=== PATIENT | female | born 1930 | race Caucasian/White ===

== ENCOUNTER 2016-10-20 08:07 | Observation (INO) | payer MEDICARE, BC ==
[~2016-10-20 08:07] MED LIST: ADVAIR 100-501 EACH IH; ADVAIR 100-501 EACH INH; ADVAIR 1001 DISK W/D; ADVAIR 10028 BLISTER INH; ADVIL200 M3 PO; ALLERGY PILL PO; AMITRIPTYLINE H25 MG; ARIMIDEX1 MG PO; BROVANA15 MCG/22 IH; CALCIUM 600-VI1 EACH PO; CALCIUM W VIT D; CALTRATE 600 W1 EACH PO; CENTRUM SILVER1 EAC3 PO; CENTRUM SILVER1 TA PO; COMBIVENT INH14.7 GM; COMBIVENT RESPIM4 G1 INH; COMBIVENT1 PUFF INH; CYCLOBENZAPRINE5 M1 PO; DETROL LA4 M1 PO; DETROL LA4 MG; DETROL LA4 MG PO; DEXTROMETHORPHAN PO; GABAPENTIN300 M1 PO; GABAPENTIN400 M3 PO; GUAIFENESIN PO; HYDROCODON-ACE1 EA15 PO; HYDROCODONE/APA1 TA; IPRAT-ALBUT 0.5-3 ML IH; KLOR-CON M2020 MEQ PO; LASIX20 MG PO; LEVAQUIN750 M1 PO; LEVOTHYROXINE100 MC1 PO; LEVOTHYROXINE112 MC3 PO; LEVOXYL125 MCG PO; LISINOPRIL20 MG; LORTAB 10-3251 EAC1 PO; LORTAB 10/5001 EA PO; METAMUCIL FIB1 WAFER; METAMUCIL0.52 G1 PO; METAMUCIL1 PKT PO; MIRALAX17 G2 PO; MS CONTIN15 M1 PO; MUCINEX PO; MUCINEX1200 MG PO; MULTIVITAMIN1 TAB; NEURONTIN300 M1 PO; NEURONTIN300 MG PO; OPANA PO; POTASSIUM CHLO20 ME3 PO; PREDNISONE10 M1; PREDNISONE5 M1 PO; PULMICORT0.5 MG/22 IH; SIMVASTATIN20 M1 PO; STOOL SOFTNER PO; SYNTHROID125 MCG; TYLENOL PM EX-1 EACH PO; TYLENOL325 M2 PO; VANIQA TP; VITAMIN D2000 UNI1 PO; VITAMIN D400 UNI3 PO; VITAMIN D400 UNI4 PO; VOLTAREN100 GM TP; ZESTRIL20 MG PO; ZITHROMAX250 M1 PO; ZOCOR20 MG; ZOCOR20 MG PO; ZOLOFT25 MG; [UNRECOGNIZED DRUG - OTHER] PO
[2016-10-20] MEDS ORDERED: LASIX20 M1 PO (08:25)
[2016-10-20] MEDS ORDERED: ZITHROMAX250 M1 PO (08:27)
[2016-10-20 09:50] LABS: BASO % 0.1 % (0-2); EOS % 0.2 % (0-7); HCT-HEMATOCRIT 33.5 % (34.0-49.0); HGB-HEMOGLOBIN 11.4 gm/dl (12.0-15.5); IMMATURE GRANULOCYTES ABSOLUTE 0.04 tho/cmm (0-0.03); IMMATURE GRANULOCYTES PERCENT 0.3 % (0-0.3); LYMPH % 7.8 % (20-45); LYMPH ABSOLUTE COUNT 1.1 tho/cmm (0.8-4.5); MCH (MEAN CORPUSCULAR HGB) 29.2 pg (28.0-32.0); MCV (MEAN CELL VOLUME) 85.7 fl (82.0-96.0); MEAN PLATELET VOLUME 10.2 cmc (9.4-12.4); MONO % 6.3 % (0-12); MONOCYTE ABSOLUTE COUNT 0.9 tho/cmm (0.0-1.2); NEUTROPHIL ABSOLUTE COUNT 11.8 tho/cmm (1.6-8.0); NEUTROPHIL-AUTOMATED 11.8 tho/cmm (1.6-8.0); NEUTROPHILS % 85.3 % (40-80); PLATELET COUNT 255 tho/cmm (150-450); RED BLOOD COUNT 3.91 mil/cmm (4.00-5.20); RED CELL DISTRIBUTION WIDTH 14.4 % (12.4-16.4); WHITE BLOOD COUNT 13.8 tho/cmm (4.0-10.0)
[2016-10-20 10:03] LABS: ALBUMIN 3.6 g/dl (3.5-5.0); ALKALINE PHOSPHATASE 68 U/L (33-138); ALT/SGPT 27 U/L (12-78); ANION GAP 10 mmol/L (0-20); AST/SGOT 20 U/L (10-40); BILIRUBIN,TOTAL 0.5 mg/dl (0-1.5); BLOOD UREA NITROGEN 12 mg/dl (6-24); CALCIUM 8.5 mg/dl (8.5-10.5); CARBON DIOXIDE-VENOUS 29 mmol/L (22-32); CHLORIDE 99 mmol/l (96-110); CREATININE 0.62 mg/dl (0.50-1.10); GLUCOSE 100 mg/dL (70-110); POTASSIUM 4.1 mmol/L (3.7-5.1); SODIUM 134 mmol/L (135-145); eGFR VALUE FOR BLACK >90 mL/Min
[2016-10-20 11:14] LABS: ESR-ERYTHROCYTE SED RATE 17 mm/hr (0-30)
[2016-10-21] MEDS ORDERED: HYDROCODON-ACE1 EA15 PO (13:46)
[2016-10-21] MEDS ORDERED: MEDROL4 M2 PO (13:58)
== END 2016-10-21 14:25 ==
LOC: EDMED 08:07 → EMR2 13:27 → 5EC 14:58
PROVIDERS: Emergency Medicine; ADMIT Hospitalist
DX: M25.552 Pain in left hip (principal); M54.32 Sciatica, left side; J47.9 Bronchiectasis, uncomplicated; F17.210 Nicotine dependence, cigarettes, uncomplicated; M48.06 Spinal stenosis, lumbar region; S76.092A Other specified injury of muscle, fascia and tendon of left hip, initial encounter; Z79.2 Long term (current) use of antibiotics; Z79.899 Other long term (current) drug therapy; Z88.5 Allergy status to narcotic agent; Z85.3 Personal history of malignant neoplasm of breast; Z90.11 Acquired absence of right breast and nipple; Z90.722 Acquired absence of ovaries, bilateral; Z90.710 Acquired absence of both cervix and uterus; Z96.641 Presence of right artificial hip joint; Z98.890 Other specified postprocedural states
CPT/HCPCS: G0378; G8978-GP-CJ; G8979-GP-CJ; G8980-GP-CJ; G8987-GO-CJ; G8988-GO-CI; G8989-GO-CJ; J2270; J2405; J7030